=== PATIENT | male | born 1935 | race Caucasian/White ===

== ENCOUNTER 2023-01-10 15:35 | Emergency (ER) | payer MEDICARE, SELFPAY ==
[2023-01-10] VITALS (44 sets, daily range): BP systolic 83–112; BP diastolic 57–96; PULSE 53–112; RESP 13–38; TEMP 36.8; O2SAT 97
--- NOTE | ~2023-01-10 | XR_ITS ---
EXAMINATION: XR chest 2V DATE: 01/10/2023 17:42 INDICATION: New onset congestive heart failure TECHNIQUE: frontal and lateral views of the chest were obtained. COMPARISON: None FINDINGS: Opacities in the right mid to lower and left lower lung zones with blunting at the posterior sulci co nsistent with small left and small to moderate sized right pleural effusions with associated atelecta sis and/or pneumonia. Mild increased interstitial pattern in the left lower lung zone consistent whic h could represent additional mild pulmonary edema. No pneumothorax. Mild cardiomegaly. IMPRESSION: 1. Small left and small to moderate-sized right pleural effusions. 2. Opacities in the bilateral lower lung zones consistent with associated atelectasis and/or pneumoni a. 3. Mild increased interstitial pattern in the left lower lung zone which could represent mild pulmona ry edema. 4. Mild cardiomegaly. Reviewed, dictated and finalized at location A. IMPRESSION: 1. Small left and small to moderate-sized right pleural effusions. 2. Opacities in the bilateral lower lung zones consistent with associated atele ctasis and/or pneumonia. 3. Mild increased interstitial pattern in the left lower lung zone which could represent mild pulmonary edema. 4. Mild cardiomegaly.
--- NOTE | ~2023-01-10 | XR_ITS ---
EXAM: XR abdomen/kub 1V DATE: 01/10/2023 20:00 HISTORY: 7mm L prox ureteral stone . COMPARISON: None available. FINDINGS: Bilateral pleural effusions. Multiple loops of mildly dilated large bowel. 9 mm calcific d ensity projecting over the left lower abdomen adjacent to L3-4 likely corresponding to the ureteral c alcification seen in the prior CT. Degenerative changes in the spine. IMPRESSION: Left ureteral stone. Reviewed, dictated and finalized at location K. IMPRESSION: Left ureteral stone.
--- NOTE | ~2023-01-10 | CT_ITS ---
EXAMINATION: CT abdomen pelvis w con DATE: 01/10/2023 18:48 INDICATION: LLQ pain, constipation, N/V TECHNIQUE: Computed tomography (CT) of the abdomen and pelvis was performed with 100 mL Omnipaque-350 intravenous contrast. Automated exposure control and iterative reconstruction technique were employe d. The dose-length product was 1245.60 mGy-cm. COMPARISON: None. FINDINGS: Examination is significantly limited by beam hardening primarily from arm positioning but also contri buted to by the presence of extensive edema and contrast reflux in the upper abdomen. Lower thorax: Coronary artery calcification. Cardiomegaly. Moderate right and small left pleural effu sions. Dependent atelectasis. Inferior vena cava reflux with a contrast level. Liver: Poorly evaluated. Hepatic vein reflux. Biliary/Gallbladder: Gallbladder is normal. No bile duct dilation. Pancreas: No definite mass or duct dilation. Spleen: Poorly evaluated. Adrenals: Possible small left adrenal adenoma. Kidneys: Delayed left nephrogram. Moderate left hydronephrosis. 7 mm stone in the proximal left urete r. Bilateral cortical thinning. GI tract: Dilated areas of large bowel including the cecum, portions of the transverse colon, and non dependent portions of the high riding sigmoid. No definite CT evidence of volvulus.. Appendix not con fidently visualized. Mesentery/Peritoneum: No ascites, mass, or free air. Retroperitoneum: No mass. Atherosclerotic abdominal aortic and/or arterial calcifications. Pelvis: Pelvic organs are within normal limits. Soft Tissues: Soft tissues and body wall unremarkable. Bones: No acute osseous finding. IMPRESSION: Limited exam as detailed above. Moderate right and small left pleural effusions. Contrast level and reflux within the inferior vena cava and hepatic vein reflux, signs of very poor c ardiac output. 7 mm proximal left ureteral stone causing moderate degenerative uropathy. Dilated areas of large bowel, without focal transition point, is mildly chronic in a patient of this age. Ileus or early obstruction not excluded. Moderate ascites. Severe body wall edema. Reviewed, dictated and finalized at location K. IMPRESSION: Limited exam as detailed above. Moderate right and small left pleural effusions. Contrast level and reflux within the inferior vena cava and hepatic vein reflux , signs of very poor cardiac output. 7 mm proximal left ureteral stone causing moderate degenerative uropathy. Dilated areas of large bowel, without focal transition point, is mildly chronic in a patient of this age. Ileus or early obstruction not excluded. Moderate ascites. Severe body wall edema.
--- NOTE | 2023-01-10 15:49 | ED.GENADULT ---
HPI - General Adult General Chief complaint: Unspecified <Miri Woo July, - Last Filed: 01/10/23 15:53> Stated complaint: low bp, poor appetite, N/V, mx cmplts <Miri Woo July, Last Filed: 01/10/23 15:53> Time Seen by Provider: 01/10/23 16:59 <Miri Woo July, - Last Filed: 01/10/23 15:53> Source: patient <Alannah Tellez PA-C - Last Filed: 01/11/23 03:05> Mode of arrival: EMS <Alannah Tellez PA-C - Last Filed: 01/11/23 03:05> Limitations: no limitations <Alannah Tellez PA-C - Last Filed: 01/11/23 03:05> History of Present Illness HPI narrative: Edison Melo is an 87 y/o male who is staying in a Rehab facility temporarily after a pelvic fracture on 12/12. Staff sent pt in today because he has been complaining of nausea/ vomited yesterday. Last BM was 4 days ago which is long for him. He has also been hypotensive and staff has been giving him his midodrine since 01/07 without any improvement. bowel sounds present/ no pain with palpatoin <Miri Woo July, - Last Filed: 01/10/23 15:53> Edison Melo is an 87 y/o male who presents to the ED via EMS with report of L sided abdominal pain. Patient currently in [facility] temporarily after a pelvic fracture on 12/12. Staff sent pt in today because he has been complaining of nausea/ vomited yesterday. Last BM was 4 days ago which is long for him. He has also been hypotensive and staff has been giving him his midodrine since 01/07 without any improvement. bowel sounds present/ no pain with palpation. Patient reports he had left-sided abdominal and back pain on Tuesday. He thought he may be passing a kidney stone at that time. Hx stones. Pain has somewhat improved since then. Denies any fevers, dysuria, hematuria, rectal bleeding, melena. Patient was seen at [facility] for his pelvic fracture. He did require a Waller catheter at that time. He was also diagnosed with CHF at that time and started on Lasix. Patient denies any current chest pain or shortness of breath. He wears 2L NC at night, but otherwise is nonoxygen dependent. <Alannah Tellez PA-C - Last Filed: 01/11/23 03:05> Related Data Allergies/adverse reactions: Allergies Allergy/AdvReac Type Severity Reaction Status Date / Time TETANUS HORSE SERUM Allergy Uncoded 11/27/10 18:02 <Miri Barrera APRN - Last Filed: 01/10/23 15:53> Review of Systems Review of Systems: CONSTITUTIONAL: Denies fever, chills, or sweats. ENT: Denies rhinorrhea, congestion, sore throat. CARDIOVASCULAR: Denies chest pain. RESPIRATORY: Denies dyspnea. GASTROINTESTINAL: See HPI. GENITOURINARY: Denies dysuria or hematuria. SKIN: Denies rash or itching. MUSCULOSKELETAL: See HPI. NEUROLOGIC: Denies headache, numbness, or weakness. <Alannah Tellez PA-C - Last Filed: 01/11/23 03:05> All systems reviewed & are unremarkable except as noted in HPI and below <Alannah Tellez PA-C - Last Filed: 01/11/23 03:05> Exam Narrative: GENERAL: Elderly, frail, non-toxic, in no acute distress. HEAD: Normocephalic, atraumatic. NECK: Supple. No adenopathy, no masses. RESPIRATORY: Airway patent, respirations nonlabored but borderline tachypneic. Rhonchi throughout lower lung padilla bilaterally. CARDIOVASCULAR: Borderline tachycardic with regular rhythm without murmurs, rubs, or gallops. Radial pulses 2+ and equal bilaterally. ABDOMINAL: Soft, minimal tenderness in left lower abdomen, nondistended, no hepatosplenomegaly. Normoactive BS. MUSCULOSKELETAL: Moves all extremities. Strength/ROM intact without gross deformities. 1+ pitting edema bilateral lower extremities, symmetric. SKIN: Warm, dry, normal color. No rashes. NEURO: A&O X3. [place]. Speech clear. Cranial nerves II-XII grossly intact. No ataxic movements. PSYCHIATRIC: Appropriate mood and affect. Normal interaction. <TOÑA ClancyC - Last Filed: 01/11/23 03:05> Course Vital S
[2023-01-10] MEDS: SODIUM CHLORIDE 0.9% IV 1,000 ML 999 ML IV CONT (17:43)
[2023-01-10 17:46] LABS: Basophils Percent Auto 0.3 % (0.2-1.2); Eosinophils Percent Auto 0.1 % (0-4.4); Hematocrit 37.6 % (42.0-52.0); Hemoglobin 12.1 g/dL (14.0-18.0); Immature Granulocyte Percent A 0.7 % (0-0.5); Mean Corpuscular HGB Conc 32.2 g/dl (32-36); Mean Corpuscular Hemoglobin 33.9 pg (26-34); Mean Corpuscular Volume 105.3 fl (80-100); Mean Platelet Volume 11.8 fl (7.4-10.4); Monocytes Absolute Auto 1.5 K/mm3 (0.1-0.6); Monocytes Percent Auto 10.1 % (2.6-8.5); Neutrophils Percent Auto 86.8 % (45.5-73.1); Platelet Count Result 148 k/mm3 (150-375); Red Blood Count 3.57 M/mm3 (4.6-6.20); Red Cell Distribution Width 14.8 % (11.5-14.5); White Blood Count 14.9 K/mm3 (4.5-10.0)
--- NOTE | 2023-01-10 17:55 | ECG_ITS ---
Measurements Intervals [place] Rate: 102 P: [place]: 0 QRS: 83 QRSD: 184 T: 70 QT: 408 QTc: 533 Interpretive Statements PROBABLE SINUS TACHYCARDIA WITH APCS LEFT BUNDLE BRANCH BLOCK [120+ ms QRS DURATION, 80+ ms Q/S IN V1/V2, 85+ ms R IN I/aVL/V5/V6] LOW VOLTAGE EKG NO PREVIOUS ECG AVAILABLE FOR COMPARISON Electronically Signed On 01-11-2023 19:46:56 CDT by Desi Cifuentes M.D.
[2023-01-10 17:59] LABS: Alanine Aminotransferase 24 U/L (6-50); Alkaline Phosphatase 111 U/L (38-126); Anion Gap 8 mmol/L (8-16); Aspartate Amino Transferase 26 U/L (17-59); Bilirubin,Total 0.9 mg/dL (0.2-1.3); Blood Urea Nitrogen 48 mg/dL (9-20); Calcium 8.9 mg/dL (8.4-10.2); Carbon Dioxide 27 mmol/L (22-30); Chloride 95 mmol/L (98-107); Estimated CRCL calculation 27 ml/min; Estimated Glomerular Filt Rate 32; Glucose 153 mg/dL (65-110); Lactic Acid Reflex 2.1 mmol/L (0.7-2.0); Lipase 149 U/L (23-300); Potassium 5.9 mmol/L (3.4-5.0); Sodium 130 mmol/L (137-145)
[2023-01-10 18:07] LABS: NT Pro B Type Natriuretic Pept > 30000 pg/mL (19.9-100)
[2023-01-10 18:24] LABS: Macrocytosis 1+ (NORMAL); Schistocytes None Seen (NORMAL)
[2023-01-10 18:48] LABS: Magnesium 2.5 mg/dL (1.6-2.3)
[2023-01-10] MEDS: DEXTROSE 50% 25 GM/50 ML SYRINGE IV PUSH (18:49)
[2023-01-10] MEDS: SODIUM POLYSTYRENE SULFONONATE 15 GM/60 ML BTL 30 GM PO (18:49)
[2023-01-10] MEDS: CALCIUM GLUC 1,000 MG/NS 100ML 1,000 MG/100 ML BAG 200 MG IVPB (18:49)
[2023-01-10] MEDS: INSULIN HUMAN REGULAR (*BKC) 100 UNITS/ML 10 UNITS IV PUSH (18:50)
[2023-01-10] MEDS: ONDANSETRON INJ 4 MG/2 ML VIAL IV PUSH (19:30)
[2023-01-10 20:09] LABS: Appearance Urine Turbid (Clear); Bacteria Urine Rare /hpf; Bilirubin Urine Negative (Negative); Blood Urine 3+ (Negative); Budding Yeast Urine Present /hpf; Color Urine Yellow (Yellow); Glucose Urine UA 3+ mg/dL (Negative); Ketones Urine Negative (Negative); Leukocyte Esterase Ur 3+ LEU/UL (Negative); Nitrate Urine Negative (Negative); Protein Urine 2+ mg/dL (Negative); RBC Urine >100 /hpf (0-2); Specific Grav Ur 1.034 (1.001-1.035); Squamous Epithelial Cell Urine Occasional /hpf (Few); WBC Urine >100 /hpf
[2023-01-10 20:21] LABS: Glucose Point of Care 143 mg/dl (65-105)
--- NOTE | 2023-01-10 20:22 | PC.NURSE ---
Tonja from [facility] called @2021 for pt status update
[2023-01-10 20:24] LABS: Influenza A QL RT-PCR Negative (Negative); Influenza B QL RT-PCR Negative (Negative); SARS-CoV-2 RNA PCR Negative (Negative)
[2023-01-10 20:32] LABS: Add Urine Microscopic? YES
[2023-01-10 20:44] LABS: Reflex Lactic Acid Yes or No Add Lactic
--- NOTE | 2023-01-10 20:49 | PC.NURSE ---
pt bp 87/59 map 68, physician notified. no further orders at this time.
[2023-01-10] MEDS: FUROSEMIDE INJ 40 MG/4 ML VIAL IV PUSH (21:31)
[2023-01-10 22:51] LABS: Troponin I 0.016 ng/mL (0.000-0.034)
[2023-01-10 23:21] LABS: Lactic Acid 2.8 mmol/L (0.7-2.0)
--- NOTE | 2023-01-10 23:22 | PC.NURSE ---
Mary Ann from [facility] called @1453 to inform of room assignment room 6941 at the [facility]. called to give report @[phone] and spoke of WAGNER Manuel. all questions answered.
--- NOTE | 2023-01-10 23:39 | PC.NURSE ---
report and care given to WAGNER Kaur. all questions answered.
== END 2023-01-11 01:18 | disposition short-term general hospital (02) ==
PROVIDERS: Nurse Practitioner Family; Emergency Provider Physician Assistant; PCP Family Medicine
DX: N13.2 Hydronephrosis with renal and ureteral calculous obstruction (principal); N39.0 Urinary tract infection, site not specified; N18.9 Chronic kidney disease, unspecified; I50.9 Heart failure, unspecified; E87.20 Acidosis, unspecified; E87.5 Hyperkalemia; Z20.822 Contact with and (suspected) exposure to COVID-19; R18.8 Other ascites; I44.7 Left bundle-branch block, unspecified; R94.31 Abnormal electrocardiogram [ECG] [EKG]
CPT/HCPCS: 36415; 71046; 74018; 74177; 80053; 81001; 82948; 83605; 83690; 83735; 83880; 84484; 85025; 87086; 87088; 87106; 87636; 93005; 96361; 96365; 96367; 96375; 99285; A9270; J0612; J0696; J1815; J1940; J2405; J7030; Q9967

== ENCOUNTER 2023-03-13 08:39 | Emergency (ER) | payer OTHER, MEDICARE, SELFPAY ==
--- NOTE | 2023-03-13 | ECG_ITS ---
rent Study Rate LA QRSd QT QTc P QRS T Severity 68 164 -3 137 146 151 0 0 Abnormal ECG INDETERMINATE RHYTHM LBBB COMPARED TO ECG 01/10/2023 19:02:03THE HEART RATE IS SLOWER AND THE QRS COMPLEXES HAVE WIDENED; CONSIDER HYPERKALEMIA. Electronically Signed On 03-13-2023 17:08:46 MAIL ORDER CLERK by Desi BECERRA
--- NOTE | ~2023-03-13 | CT_ITS ---
CORRECTED REPORT Move report and images to correct [place] [id number] [facility] [place] This report was recreated on 03/25/23. Original report was RAM CHECKER EXAMINATION: CT brain wo con DATE: 03/13/2023 10:29 INDICATION: Altered mental state. Transient alteration of awareness. TECHNIQUE: Computed tomography (CT) of the head was performed without intravenous contrast. The mA was adjusted according to patient size. Iterative reconstruction technique was employed. Exam dose: 605.33 mGy-cm total exam DLP. COMPARISON: None FINDINGS: Examination is limited by patient motion. Bilateral vertebral artery, basilar artery and bilateral carotid siphon internal carotid artery calcifications. No central and cortical cerebral and cerebellar volume loss. No intracranial mass lesion or hemorrhage or cerebrovascular accident, midline shift or mass effect is detected. No subdural or epidural hematoma. Right scleral band. Mild mucoperiosteal thickening of the right maxillary sinus and patchy soft tissue thickening the ethmoid air cells. There is prominent right and mild left frontal sinus soft tissue thickening. The left maxillary and bilateral sphenoid sinuses are clear. No fracture or bone destruction of the cranial vault IMPRESSION: No acute intracranial finding or skull fracture Reviewed, dictated and finalized at Location A. Reviewed, dictated and finalized at location A. RAM CHECKER MTDD
--- NOTE | ~2023-03-13 | XR_ITS ---
CORRECTED REPORT Move report and images to correct visit number [id number] [facility] [place] 03/25/23 This report was recreated on 03/25/23. Original report was HOLOGY DEPARTMENT CHAIR XR chest 1V portable DATE: 03/13/2023 09:56 INDICATION: Altered mental status TECHNIQUE: Portable supine AP chest on 03/09/2020. A 0951 hours COMPARISON: 01/10/2023 AP and lateral chest FINDINGS: There is enlargement of cardiac silhouette, likely due to cardiomegaly; pericardial effusion is not excluded. There is extensive coronary calcification. There are Dione B-lines best demonstrated in the left mid and lower lung. There are bilateral preferentially central lung infiltrates and pulmonary edema. There is pulmonary vascular congestion and redistribution. Moderately large right pleural effusion. Diffuse idiopathic skeletal hyperostosis of the thoracic spine. IMPRESSION: Congestive heart failure, pulmonary edema Reviewed, dictated and finalized at location A. HOLOGY DEPARTMENT CHAIR MTDD
--- NOTE | 2023-03-13 11:24 | ER_ITS ---
This report was moved to the correct visit on 03/25/2023. The original report was signed by Cherelle Govea MD on 03/13/23 [id number]. HPI - Altered Mental Status General Chief Complaint: Altered Mental Status Stated Complaint: AMS Time Seen by Provider: 03/13/23 08:59 Source: family, EMS, RN notes reviewed and old records reviewed Mode of arrival: EMS Limitations: clinical condition History of Present Illness HPI narrative: This is an 87 year old male with history of dementia, CHF who presents from nursing facility for evaluation of alter mental status . PAtient's POA is at bedside. She reports over the past few days he has not eat or drinking very much. She also reports he has been sleeping morning. It is reported that patient was started on hydrocodone today, and patient became more altered. His baseline is oriented x 1. Today he just moans. His POA reports that is blood pressure has been runny low in 80s systolic. She is wondering if patient should be on hospice. Related Data Allergies Allergy/AdvReac Type Severity Reaction Status Date / Time Horse/Equine Containing Allergy Verified 03/13/23 09:57 Products tetanus toxoid, adsorbed Allergy Verified 03/13/23 09:57 Review of Systems Review of Systems: ROS unobtainable: Yes unobtainable due to medical condition and unobtainable due to mental status PMFSH Past Medical History Medical History (Updated 03/13/23 @ 18:39 by Cherelle Govea MD) Anemia BPH (benign prostatic hyperplasia) Hyperlipidemia Hypertension LBBB (left bundle branch block) Surgical History Surgical History (Updated 03/13/23 @ 13:42 by Cherelle Govea MD) Surgical history unknown Social History Social History (Updated 03/13/23 @ 13:42 by Cherelle Govea MD) Smoking status: Smoker, status unknown Exam Const: General: confusion and ill appearing Limitations: altered mental status Other: patient is moaning HENMT: Head: normal to inspection Mouth: Yes dry mucous membranes Eyes: EOM: EOMs intact bilaterally Chest: Chest palpation & inspection: normal inspection of the chest Resp: Effort & Inspection: normal respiratory effort Auscultation: clear to auscultation bilaterally Cardio: Rate: regular rate Rhythm: regular rhythm Heart sounds: Murmur heart sound present GI: GI Palp: Yes Soft to palpation, No Guarding due to palpation present (GI) and No Rigid due to palpation Auscultation: absent bowel sounds : Penis: Yes circumcised Skin: General skin exam: pallor Neuro: Other: unable to follow commands Extrem: General: edema bilateral (lower extremity) Psych: Other: patient is moaning Course Reevaluation(s) Reevaluation #1: I discussed with patient's POA patient critically ill. Patient found to have worsening kidney failure with hyperkalemia. He also has hypoglycemia, 11 lactic acid. PAtient has CHF. After discussion she would like to place patient on comfort care, hospice. Care coordination has been consulted. Date: 03/13/23 Time: 10:30 Vital Signs Vital signs: Vital Signs Pulse Rate 73 03/13/23 08:46 Respiratory Rate 18 03/13/23 08:46 Blood Pressure 82/60 L 03/13/23 08:46 Pulse Oximetry 100 03/13/23 08:46 Oxygen Delivery Nasal Cannula 03/13/23 08:46 Oxygen Flow Rate 4 03/13/23 08:46 Temperature 98.1 F 03/13/23 12:02 Pulse Rate 67 03/13/23 15:51 Respiratory Rate 20 03/13/23 15:51 Blood Pressure 76/54 L 03/13/23 14:
== END 2023-03-13 14:11 | disposition hospice, inpatient (51) ==
LOC: ANHED 03-25 06:42
PROVIDERS: Emergency Provider General Practice; PCP Family Medicine
DX: I11.0 Hypertensive heart disease with heart failure (principal); I50.9 Heart failure, unspecified; N17.9 Acute kidney failure, unspecified; E16.2 Hypoglycemia, unspecified; E87.20 Acidosis, unspecified; E87.5 Hyperkalemia; F03.90 Unspecified dementia, unspecified severity, without behavioral disturbance, psychotic disturbance, mood disturbance, and anxiety; N40.0 Benign prostatic hyperplasia without lower urinary tract symptoms; E78.5 Hyperlipidemia, unspecified; Z86.2 Personal history of diseases of the blood and blood-forming organs and certain disorders involving the immune mechanism; I44.7 Left bundle-branch block, unspecified
CPT/HCPCS: 70450; 71045; 93005; 96361; 96374; 96375; 99285; A9270; J0612; J1170; J2270; J2405; J7030

== ENCOUNTER 2023-03-13 08:44 | HOS | payer OTHER, MEDICARE, SELFPAY ==
[2023-03-13] VITALS (22 sets, daily range): BP systolic 54–151; BP diastolic 38–125; PULSE 0–73; RESP 0–25; TEMP 36.7; O2SAT 93–100
--- NOTE | ~2023-03-13 | CT_ITS ---
EXAMINATION: CT brain wo con DATE: 03/13/2023 10:29 INDICATION: Altered mental state. Transient alteration of awareness. TECHNIQUE: Computed tomography (CT) of the head was performed without intravenous contrast. The mA wa s adjusted according to patient size. Iterative reconstruction technique was employed. Exam dose: 60 5.33 mGy-cm total exam DLP. COMPARISON: None FINDINGS: Examination is limited by patient motion. Bilateral vertebral artery, basilar artery and bilateral carotid siphon internal carotid artery calci fications. No central and cortical cerebral and cerebellar volume loss. No intracranial mass lesion or hemorrhag e or cerebrovascular accident, midline shift or mass effect is detected. No subdural or epidural hematoma. Right scleral band. Mild mucoperiosteal thickening of the right maxillary sinus and patchy soft tissue thickening the eth moid air cells. There is prominent right and mild left frontal sinus soft tissue thickening. The left maxillary and bilateral sphenoid sinuses are clear. No fracture or bone destruction of the cranial vault IMPRESSION: No acute intracranial finding or skull fracture Reviewed, dictated and finalized at Location A. Reviewed, dictated and finalized at location A. ING SPECIALIST
--- NOTE | ~2023-03-13 | XR_ITS ---
XR chest 1V portable DATE: 03/13/2023 09:56 INDICATION: Altered mental status TECHNIQUE: Portable supine AP chest on 03/09/2020. A 0951 hours COMPARISON: 01/10/2023 AP and lateral chest FINDINGS: There is enlargement of cardiac silhouette, likely due to cardiomegaly; pericardial effusio n is not excluded. There is extensive coronary calcification. There are Dione B-lines best demonstrated in the left mid and lower lung. There are bilateral prefer entially central lung infiltrates and pulmonary edema. There is pulmonary vascular congestion and red istribution. Moderately large right pleural effusion. Diffuse idiopathic skeletal hyperostosis of the thoracic spine. IMPRESSION: Congestive heart failure, pulmonary edema Reviewed, dictated and finalized at location A. MONITOR
[2023-03-13] MEDS: CALCIUM GLUCONATE 1,000 MG/10 ML VIAL 1000 MG IV PUSH (09:32)
[2023-03-13] MEDS: DEXTROSE 50% 25 GM/50 ML SYRINGE IV PUSH (09:33)
[2023-03-13] MEDS: SODIUM CHLORIDE 0.9% IV 1,000 ML 999 ML IV CONT ×2 (09:33→10:04)
[2023-03-13] MEDS: SODIUM BICARBONATE 8.4% 50 MEQ/50 ML SYRINGE IV PUSH (09:33)
[2023-03-13 09:43] LABS: Glucose Point of Care 40 mg/dl (65-105)
[2023-03-13 09:47] LABS: Alveolar/Arterial O2 Gradient 30.9 mmHg; Base Excess ABG -6.5 mEq/l (+/-2.0); Carboxyhemoglobin 0.5 % THb (0-2.0); Fractional Inspired Oxygen 21 %; HCO3 ABG 17.8 mEq/l (22.0-26.0); Methemoglobin ABG 0.1 %THb (0-1.5); Oxygen Saturation ABG 95.9 % (95.0-100.0); Oxyhemoglobin 93.3 % THb (90.0-100.0); PCO2 ABG 31.3 mmHg (35.0-45.0); PO2 ABG 81.4 mmHg (80.0-100.0); PO2 FiO2 Ratio Arterial Blood 3.88 %; Reduced Hemoglobin 6.1 %THb (0-5.0); Total Hemoglobin 10.6 g/dL (12.0-18.0); pH ABG 7.372 (7.350-7.450)
[2023-03-13 09:48] LABS: Device ROOM AIR; Modified Allen's Test Pass; Site Drawn RIGHT RADIAL
[2023-03-13 09:49] LABS: Basophils Percent Auto 0.1 % (0.2-1.2); Hematocrit 36.2 % (42.0-52.0); Hemoglobin 10.9 g/dL (14.0-18.0); Immature Granulocyte Absolute 0.09 K/mm3 (0.00-0.031); Immature Granulocyte Percent A 0.8 % (0-0.5); Immature Platelet Fraction Pct 18.2 % (0.9-11.2); Lymphocytes Absolute Auto 0.36 K/mm3 (0.9-3.2); Lymphocytes Percent Auto 3.1 % (18.3-44.2); Mean Corpuscular HGB Conc 30.1 g/dl (32-36); Mean Corpuscular Hemoglobin 32.4 pg (26-34); Mean Corpuscular Volume 107.7 fl (80-100); Mean Platelet Volume 13.8 fl (7.4-10.4); Monocytes Absolute Auto 0.7 K/mm3 (0.1-0.6); Monocytes Percent Auto 5.6 % (2.6-8.5); Neutrophils Absolute Auto 10.6 K/mm3 (1.3-6.7); Neutrophils Percent Auto 90.4 % (45.5-73.1); Platelet Count Result 94 k/mm3 (150-375); Red Blood Count 3.36 M/mm3 (4.6-6.20); Red Cell Distribution Width 17.9 % (11.5-14.5); White Blood Count 11.8 K/mm3 (4.5-10.0)
[2023-03-13 09:55] LABS: Ammonia 29 umol/L (9-30); Ethanol < 10 mg/dL (<10)
[2023-03-13 09:55] LABS: INR 1.6; Prothrombin Time 20.4 Seconds (11.1-14.7)
[2023-03-13 09:56] LABS: Partial Thromboplastin Time 38.5 SECONDS (22.3-36.8)
[2023-03-13 10:11] LABS: Glucose Point of Care 119 mg/dl (65-105)
[2023-03-13 10:20] LABS: Influenza A QL RT-PCR Negative (Negative); Influenza B QL RT-PCR Negative (Negative); RSV RNA, RT-PCR Negative (Negative); SARS-CoV-2 RNA PCR Positive (Negative)
[2023-03-13 10:22] LABS: Alanine Aminotransferase 56 U/L (6-50); Albumin Level 3.4 g/dL (3.5-5.1); Alkaline Phosphatase 132 U/L (38-126); Anion Gap 25 mmol/L (8-16); Aspartate Amino Transferase 96 U/L (17-59); Blood Urea Nitrogen 102 mg/dL (9-20); Calcium 8.3 mg/dL (8.4-10.2); Carbon Dioxide 16 mmol/L (22-30); Chloride 96 mmol/L (98-107); Estimated Glomerular Filt Rate 11; Glucose 42 mg/dL (65-110); Lipase 122 U/L (23-300); Magnesium 2.8 mg/dL (1.6-2.3); NT Pro B Type Natriuretic Pept > 30000 pg/mL (19.9-100); Potassium 6.4 mmol/L (3.4-5.0); Sodium 137 mmol/L (137-145); Troponin I 0.075 ng/mL (0.000-0.034)
[2023-03-13 10:23] LABS: Lactic Acid Reflex 11.1 mmol/L (0.7-2.0)
[2023-03-13 10:32] LABS: Hypochromasia 1+ (NORMAL); Schistocytes None Seen (NORMAL)
--- NOTE | 2023-03-13 11:23 | ED.AMS ---
HPI - Altered Mental Status General Chief Complaint: Altered Mental Status Stated Complaint: AMS Time Seen by Provider: 03/13/23 08:59 Source: family, EMS, RN notes reviewed and old records reviewed Mode of arrival: EMS Limitations: clinical condition History of Present Illness HPI narrative: This is an 87 year old male with history of dementia, CHF who presents from nursing facility for evaluation of alter mental status . PAtient's POA is at bedside. She reports over the past few days he has not eat or drinking very much. She also reports he has been sleeping morning. It is reported that patient was started on hydrocodone today, and patient became more altered. His baseline is oriented x 1. Today he just moans. His POA reports that is blood pressure has been runny low in 80s systolic. She is wondering if patient should be on hospice. Related Data Allergies Allergy/AdvReac Type Severity Reaction Status Date / Time Horse/Equine Containing Allergy Verified 03/13/23 09:57 Products tetanus toxoid, adsorbed Allergy Verified 03/13/23 09:57 Review of Systems Review of Systems: ROS unobtainable: Yes unobtainable due to medical condition and unobtainable due to mental status PMFSH Past Medical History Medical History (Updated 03/13/23 @ 18:39 by Cherelle Govea MD) Anemia BPH (benign prostatic hyperplasia) Hyperlipidemia Hypertension LBBB (left bundle branch block) Surgical History Surgical History (Updated 03/13/23 @ 13:42 by Cherelle Govea MD) Surgical history unknown Social History Social History (Updated 03/13/23 @ 13:42 by Cherlele Govea MD) Smoking status: Smoker, status unknown Exam Const: General: confusion and ill appearing Limitations: altered mental status Other: patient is moaning HENMT: Head: normal to inspection Mouth: Yes dry mucous membranes Eyes: EOM: EOMs intact bilaterally Chest: Chest palpation & inspection: normal inspection of the chest Resp: Effort & Inspection: normal respiratory effort Auscultation: clear to auscultation bilaterally Cardio: Rate: regular rate Rhythm: regular rhythm Heart sounds: Murmur heart sound present GI: GI Palp: Yes Soft to palpation, No Guarding due to palpation present (GI) and No Rigid due to palpation Auscultation: absent bowel sounds : Penis: Yes circumcised Skin: General skin exam: pallor Neuro: Other: unable to follow commands Extrem: General: edema bilateral (lower extremity) Psych: Other: patient is moaning Course Reevaluation(s) Reevaluation #1: I discussed with patient's POA patient critically ill. Patient found to have worsening kidney failure with hyperkalemia. He also has hypoglycemia, 11 lactic acid. PAtient has CHF. After discussion she would like to place patient on comfort care, hospice. Care coordination has been consulted. Date: 03/13/23 Time: 10:30 Vital Signs Vital signs: Vital Signs Pulse Rate 73 03/13/23 08:46 Respiratory Rate 18 03/13/23 08:46 Blood Pressure 82/60 L 03/13/23 08:46 Pulse Oximetry 100 03/13/23 08:46 Oxygen Delivery Nasal Cannula 03/13/23 08:46 Oxygen Flow Rate 4 03/13/23 08:46 Temperature 98.1 F 03/13/23 12:02 Pulse Rate 67 03/13/23 15:51 Respiratory Rate 20 03/13/23 15:51 Blood Pressure 76/54 L 03/13/23 14:16 Pulse Oximetry 99 03/13/23 14:16 Oxygen Delivery Nasal Cannula 03/13/23 08:46 Oxygen Flow Rate 4 03/13/23 08:46 MDM - Altered Mental Status MDM Narrative Medical decision making narrative: On arrival to ER. PAtient found to be hypotensive with EKG shows LBBB with widened QRS. on review of records the LBBB is old but QRS is more widened so patient given a 1 amp, calcium gluconate, and IV fluids. PAtient remained hypotensive with significant lab abnormalities. Potassium is 6.4 with acute kidney injury. Family decided to placed patient on hospice . Differential Diagnosis Differ
--- NOTE | 2023-03-13 11:26 | PCCCNOTE ---
Pt is currently non responsive. I spoke with Dr Govea and the family. The family would like to start Hospice. [facility] referral made and they will be out here by noon today to evaluate for GIP status and speak with the family. Information faxed to [facility].
[2023-03-13] MEDS: MORPHINE SULFATE (*CRX) 2 MG/ML INJ IV PUSH (11:31)
[2023-03-13] MEDS: ONDANSETRON INJ 4 MG/2 ML VIAL IV PUSH (11:31)
[2023-03-13 12:43] LABS: Reflex Lactic Acid Yes or No Add Lactic
[2023-03-13] MEDS: SCOPOLAMINE 1 MG PATCH 1 PATCH TRANSDERM (14:20)
[2023-03-13] MEDS: MORPHINE SULFATE (*CRX) 2 MG/ML INJ (14:28)
--- NOTE | 2023-03-13 14:40 | ADMGEN ---
This patient, Edison Melo, was admitted to [facility] Surg Room 318-01 @ 1440. Patient/family oriented to hospital policies and general routines including ID bracelet, bed and alarms, visiting hours, pain management, procedures, bathroom and other care routines, personal items, smoking policy, room service/diet, and visiting hours. Information on how to activate the Rapid Response Team has been discussed. Patient/Family are encouraged to report perceived risks to care and to ask questions if they do not understand what they are told or what they should do.
[2023-03-13] MEDS: HYDROmorphone HCL INJ (*CRX) 1 MG/ML SYR IV PUSH (15:46)
[2023-03-13] MEDS: HYDROmorphone HCL/PF (*CRX) 50 MG in SODIUM CHLORIDE 0.9% IV 95 ML IV CONT (15:51)
--- NOTE | 2023-03-14 17:23 | P.HP_ITS ---
H&P: HPI History of Present Illness Date/Time: 03/14/23 17:23 Chief Complaint: Uncontrolled discomfort Narrative: 87 y/o male with hx chf and dementia was eating less in his NH environment and becoming less responsive. He is Ox1 at baseline. Upon presentation to ED he was only moaning and restless. He was in [facility]. Given his baseline status, age, and comorbidities, his POA opted for symptoms management on inpatient hospice service. Review of Systems Review of Systems: ROS unobtainable: Yes unobtainable due to medical condition PMFSH Past Medical History Medical History Anemia BPH (benign prostatic hyperplasia) Hyperlipidemia Hypertension LBBB (left bundle branch block) Surgical History Surgical History Surgical history unknown Social History Social History Smoking status: Smoker, status unknown Spiritual care concerns: No Meds Home Medications and Allergies Home Medications Medication Instructions Recorded Confirmed Type suvorexant 10 mg tablet (Belsomra) 10 mg PO QHS #30 tabs 01/01/23 Rx Allergies Allergy/AdvReac Type Severity Reaction Status Date / Time Horse/Equine Containing Allergy Verified 03/13/23 09:57 Products tetanus toxoid, adsorbed Allergy Verified 03/13/23 09:57 Vital Signs Vital Signs - 24 hr 03/13/23 20:00 Oxygen Delivery Room Air Exam Narrative: prior to being examined by me Assessment and Plan Assessment and plan (1) Palliative care encounter: Code(s): Z51.5 - Encounter for palliative care Status: Acute Assessment and Plan: * Meets inpatient hospice criteria due to requiring continuous hydromorphone for control of symptoms * PRN palliative medications ordered as well (2) Multi-organ failure with heart failure: Code(s): I50.9 - Heart failure, unspecified Status: Acute (3) Hypoglycemia: Code(s): E16.2 - Hypoglycemia, unspecified Status: Acute (4) Acidosis, lactic: Code(s): E87.20 - Acidosis, unspecified Status: Acute (5) Acute hyperkalemia: Code(s): E87.5 - Hyperkalemia Status: Acute
--- NOTE | 2023-03-14 17:27 | P.DN_ITS ---
Discharge Summary Date and Time Date of : 03/14/23 Time of : 02:15 Provider Pronounced By: Ricardo Duke RN Probable Cause of Probable Cause of : congestive heart failure with multiorgan failure Summary Hospital Course: Admitted to inpatient hospice service for symptom management. Medications were titrated to comfort. Mr. Melo peacefully. Additional Data Confirmation of as documented by pronouncing clinician: Pupillary Reflex, Palpable Pulses, Response to Stimuli, Heart Tones and Breath Sounds Name of Provider Notified: Óscar Time Provider Notified: 02:25 Social Media Assistant Notified: Yes Date [facility] Notified of : 03/14/23 Time [facility] Notified of : 02:39
== END 2023-03-14 02:15 | disposition expired | DRG 951 ==
LOC: ANHED 14:43 → ANH3MEDSUR 14:53
PROVIDERS: Admitting Provider Internal Medicine; Emergency Provider General Practice; PCP Family Medicine; Visit Provider Internal Medicine
DX: Z51.5 Encounter for palliative care (principal); U07.1 COVID-19; E87.20 Acidosis, unspecified; I11.0 Hypertensive heart disease with heart failure; I50.9 Heart failure, unspecified; E87.5 Hyperkalemia; E16.2 Hypoglycemia, unspecified; F03.90 Unspecified dementia, unspecified severity, without behavioral disturbance, psychotic disturbance, mood disturbance, and anxiety
CPT/HCPCS: 36415; 36600; 70450; 71045; 80053; 80307; 82140; 82375; 82805; 82948; 83050; 83605; 83690; 83735; 83880; 84484; 85025; 85055; 85610; 85730; 87040; 87637; 93005; A9270; J0612; J1170; J2270; J2405; J7030